=== PATIENT | male | born 1965 | race Caucasian/White ===

== ENCOUNTER 2019-11-08 10:51 | Inpatient (IN) | payer BC ==
[~2019-11-08] VITALS: Ht 172.7 cm; Wt 103.0 kg
[2019-11-08] MEDS ORDERED: SODIUM CHLORIDE 0.9% 1,000 ML IVB ONE (11:07)
[2019-11-08 11:43] LABS: Basophils # (auto) 0 10 ^3/uL (0-0.2); Basophils % (auto) 0.3 % (0.0-2.0); Eosinophils # (auto) 0 10 ^3/uL (0-0.8); Eosinophils % (auto) 0.1 % (0.0-7.0); Hemoglobin 15.3 g/dL (13.5-17.5); Lymphocytes # (auto) 0.7 10 ^3/uL (0.4-5.4); Lymphocytes % (auto) 8.3 % (10.0-50.0); Mean Corpuscular Hemoglobin 28.6 pg (28.0-32.0); Monocytes # (auto) 0.5 10 ^3/uL (0-1.3); Monocytes % (auto) 5.8 % (0.0-12.0); Neutrophils # (auto) 6.7 10 ^3/uL (1.6-8.6); Neutrophils % (auto) 85.5 % (37.0-80.0); Platelet Count (auto) 233 10^3/uL (140-450); Red Blood Cells 5.36 10^6/uL (4.5-5.90); White Blood Cell 7.8 10^3/uL (4.4-10.8)
[2019-11-08 12:05] LABS: Salicylate < 1.7 mg/dL (2.8-20.0)
[2019-11-08 12:07] LABS: Chloride 104 mmol/L (98-107); Sodium 139 mmol/L (136-145)
[2019-11-08 12:15] LABS: Acetaminophen < 2.0 ug/mL (10-30); Alanine Aminotransferase 65 U/L (16-61); Albumin 4.1 g/dL (3.4-5.0); Alkaline Phosphatase 87 U/L (45-117); Anion Gap 10 (5-15); Aspartate Aminotransferase 82 U/L (15-37); BUN/Creatinine Ratio 21.5; Bilirubin, Total 1.2 mg/dL (0.2-1.0); Blood Alcohol < 3.0 mg/dL (0-5); Blood Urea Nitrogen 20 mg/dL (7-18); Carbon Dioxide 25 mmol/L (21-32); GFR African American 108 mL/min; GFR Non-African American 90 mL/min; Glucose 133 mg/dL (74-106); Total Protein 7.9 g/dL (6.4-8.2)
[2019-11-08] MEDS ORDERED: PANTOPRAZOLE 40 MG/10 ML VIAL INJ IV ONE (14:00)
[2019-11-08] MEDS ORDERED: PIPERACILLIN-TAZOB 3.375GM 100 ML IV ONE (14:00)
[2019-11-08] MEDS ORDERED: NITROGLYCERIN 0.4 MG SL TAB SL PRN ×3 (15:00→16:15)
[2019-11-08] MEDS ORDERED: MORPHINE SULF INJ 2 MG/ML SYRINGE 1ML IV PRN ×2 (15:00→16:15)
[2019-11-08] MEDS ORDERED: ASCORBIC ACID 500 MG TAB PO ONE (15:15)
[2019-11-08 15:20] LABS: INR 0.98 (0.9-1.15); Partial Thromboplastin Time 25.8 sec (23.64-32.05)
[2019-11-08] MEDS ORDERED: IPRATROPIUM BROM 0.5 MG/2.5ML INH SOL NEB PRN (16:15)
[2019-11-08] MEDS ORDERED: ONDANSETRON HCL 4 MG/2 ML VIAL IV PRN (16:15)
[2019-11-08] MEDS ORDERED: ALUM & MAG HYDROX-SIMETH LIQ(MAALOX) 30 ML PO PRN (16:15)
[2019-11-08] MEDS ORDERED: DEXTROSE (50%) 50ML SYRG IV PRN ×2 (16:15→22:30)
[2019-11-08] MEDS ORDERED: DOCUSATE SOD 100 MG CAP PO PRN (16:15)
[2019-11-08] MEDS: ZINC SULFATE 220mg CAP or TAB PO SCH (17:00)
[2019-11-08] MEDS: InsuLIN REG 1unit/0.01ml Soln (100units/ml) SC SCH ×2 (17:00→22:00)
--- NOTE | 2019-11-08 17:22 | NUR ---
Telemetry admit from ER IBIS TEJADA admitted to Telemetry unit after SBAR received. Patient oriented to ROGELIO TAPIA RN primary RN, unit, room, bed, and unit policies regarding patient care and visiting hours. Patient now on continuous telemetry monitoring, tele box # 2 and telemetry reading on arrival to unit is SR. Patient placed on bedside oxygen at 6L via NC, weighed by bedscale and encouraged to call if they need something. All questions and concerns addressed, patient verbalized understanding.
[2019-11-08 18:00] VITALS: BP 144/102
[2019-11-08] MEDS ORDERED: ALBUTEROL SULF 2.5 MG/0.5ML(0.5%) NEB SOLN NEB SCH (18:00)
--- NOTE | 2019-11-08 18:00 | NUR ---
SPOKE TO THE PATIENT THE PATIENT IS LETHARGIC AND CONTINUES TO FALL ASLEEP DURING THE CONVERSATION. THE PATIENT STATED THAT THE RN CAN CALL HIS , ALEXANDREA, AND ASK THE ADMISSION QUESTIONS AND HISTORY. THE PATIENT STATED "I DON'T REMEMBER WHAT I TOOK BUT IT COULD HAVE BEEN HEROIN OR COCAINE". THE RN ASKED THE PATIENT IF SHE CAN DISCUSS THE HEROIN OR COCAINE USE WITH THE PATIENTS AND THE PATIENT STATED "PLEASE ASK HER ABOUT THE HEROIN BECAUSE SHE KNOWS EVERY THING BUT I DIDN'T GET TO TELL HER THAT IT MAY HAVE BEEN HEROIN".
[2019-11-08] MEDS: SODIUM CHLORIDE 0.9% 1,000 ML IV SCH (18:03)
--- NOTE | 2019-11-08 18:30 | NUR ---
SPOKE TO THE PATIENTS , ALEXANDREA TEJADA AND THE PATIENT'S SON. CALLED THE PATIENTS AND WAS ABLE TO SPEAK TO THE PATIENTS , ALEXANDREA, AND HIS SON. PER THE , SHE WAS UNAWARE OF WHAT SUBSTANCES THE PATIENT HAD TAKEN BUT THERE IS REASON TO BELIEVE THAT IT COULD HAVE BEEN LORAZEPAM, MORPHINE OR NORCO, DUE TO THE MEDICATIONS FOUND IN THE HOME AT THE TIME. THERE WAS ALSO USED NEEDLES WITH BLOOD ON THEM IN THE HOME . THE STATED THAT SHE HAD LEFT WITH HER TWO YOUNG CHILDREN AND THE PATIENT'S OLDER SON WAS WITH THE PATIENT AT THEIR HOME. THE SON WENT WITH THE PATIENT TO THE PATIENT'S BROTHERS HOME WHERE THE PATIENT AND THE PATIENT'S BROTHER HAD "SMOKED SOMETHING" THAT THE SUBSTANCE WAS UNKNOWN TO THE SON. THE SON STATED, "MY DAD WAS STUMBLING AND COULDN'T WALK NORMAL. HE WAS PARANOID BECAUSE HE HEARD NOISES OUTSIDE. THIS IS NOT NORMAL FOR MY DAD". THE PATIENTS ALSO STATED THAT HE COULD HAVE USED HEROIN, BUT SHE IS UNSURE.
[2019-11-08 18:46] LABS: Urine Bacteria NONE SEEN /hpf (None Seen); Urine Blood 2+ /uL (Negative); Urine Mucus FEW (None Seen); Urine Specific Gravity 1.025 (1.001-1.035); Urine Sperm PRESENT /hpf (None Seen); Urine WBC 1 /hpf (0 - 3)
[2019-11-08 18:49] LABS: Amphetamine Screen, Urine POSITIVE (NEGATIVE); Barbiturate Scree,Urine NEGATIVE (NEGATIVE); Benzodiazephine Screen, Urine NEGATIVE (NEGATIVE); Cannabinoid Screen, Urine NEGATIVE (NEGATIVE); Cocaine Screen, Urine NEGATIVE (NEGATIVE); Opiate Scree,Urine POSITIVE (NEGATIVE); Phencyclidine Screen, Urine NEGATIVE (NEGATIVE)
[2019-11-08] MEDS: ACCU-CHEK COMFORT CURVE STRIP VI SCH ×2 (19:28→22:00)
--- NOTE | 2019-11-08 19:30 | NUR ---
Opening Shift Note Received report from hanna Bustos RN. Assumed care of patient, resting in bed with eyes closed. Opens eyes and converse for a few seconds, but lethargic and goes back to closing eyes again. Sitter at bedside. No S/S of distress/SOB or pain. Instructed on POC and to call for assist PRN, will continue to monitor for changes Q1hr and PRN. Bed placed in lowest position and call light within reach.
[2019-11-08 20:00] VITALS: BP 142/99
[2019-11-08] MEDS ORDERED: SERT-274 PO (20:06)
[2019-11-08] MEDS ORDERED: OXY5T PO (20:06)
[2019-11-08] MEDS ORDERED: ALBUTEROL SULF HFA 90MCG INH 200DOSE IN SCH (22:00)
[2019-11-08] MEDS ORDERED: ATORVASTATIN 20 MG TAB PO SCH (22:00)
[2019-11-08] MEDS ORDERED: LORazepam 2MG/ML-1ML VIAL IV PRN (22:30)
--- NOTE | 2019-11-08 23:49 | NUR ---
BINA FROM POISON CONTROL CALLED AND REQUESTING A REPEAT AST AND ALT LABS IN THE MORNING. CHARGE NURSE AWARE. WILL PLACED ORDER FOR MORNING LABS.
[2019-11-09] VITALS: BP 163/100
--- NOTE | 2019-11-09 00:20 | NUR ---
PATIENT'S BLOOD PRESSURE IS 163/100. GIVEN HYDRALAZINE ORDERED. WILL MONITOR
[2019-11-09] MEDS: hydrALAZINE HCL 20 MG/ML VL IV SCH ×5 (00:25→23:27)
--- NOTE | 2019-11-09 01:50 | NUR ---
BLOOD PRESSURE AFTER HYDRALAZINE IS 138/82. PATIENT IS RESTING IN BED WITH EYES CLOSED, NO DISTRESS NOTED.
[2019-11-09 02:20] LABS: Urine Bacteria NONE SEEN /hpf (None Seen); Urine Blood 3+ /uL (Negative); Urine Mucus FEW (None Seen); Urine Specific Gravity 1.022 (1.001-1.035); Urine Sperm PRESENT /hpf (None Seen); Urine WBC 6 /hpf (0 - 3)
[2019-11-09 02:25] LABS: Alcohol, Urine < 3.0 mg/dL (0-5); Amphetamine Screen, Urine POSITIVE (NEGATIVE); Barbiturate Scree,Urine NEGATIVE (NEGATIVE); Benzodiazephine Screen, Urine NEGATIVE (NEGATIVE); Cannabinoid Screen, Urine NEGATIVE (NEGATIVE); Cocaine Screen, Urine NEGATIVE (NEGATIVE); Phencyclidine Screen, Urine NEGATIVE (NEGATIVE)
[2019-11-09 02:33] LABS: Opiate Scree,Urine POSITIVE (NEGATIVE)
[2019-11-09 03:06] VITALS: BP 142/99
[2019-11-09 04:00] VITALS: BP 152/86
[2019-11-09] MEDS: SODIUM CHLORIDE 0.9% 1,000 ML IV SCH (05:21)
[2019-11-09] MEDS: HYDROcodone-ACET 5/325MG TAB PO PRN ×2 (05:21→09:56)
[2019-11-09] MEDS: ACCU-CHEK COMFORT CURVE STRIP VI SCH ×2 (06:27→11:52)
[2019-11-09] MEDS: InsuLIN REG 1unit/0.01ml Soln (100units/ml) SC SCH ×2 (06:27→11:30)
--- NOTE | 2019-11-09 06:45 | NUR ---
Patient woke up with c/o pain to joints of 6/. Patient just received norco as ordered at 0521. Will endorse to day nurse.
[2019-11-09] MEDS ORDERED: ACCU-CHEK COMFORT CURVE STRIP VI SCH (07:00)
--- NOTE | 2019-11-09 08:00 | NUR ---
OPENING SHIFT NOTE ASSUMED CARE OF PATIENT AWAKE AND ALERT X4. NO S/S OF DISTRESS NOTED. PATIENT HAS A COMPLAINT OF 6/10 PAIN TO ALL JOINTS BELOW HIS WAIST. WILL MEDICATE PER MD ORDER AND MAR. PATIENT IS ABLE TO HOLD A CONVERSATION AND REMEMBERS EVENTS BEFORE HE WAS FOUND UNCONSCIOUS AT HOME. PATIENT STATES HE HAD NO INTENTION OF HARMING HIMSELF OR TAKING HIS OWN LIFE. OXYGEN SATURATION ISS 94% ON 3L NS AND PATIENT IS AFEBRILE. PATIENT UPDATED ON POC FOR THE DAY AND ALL QUESTIONS ANSWERED. BED IS IN LOWEST, LOCKED POSITION WITH SIDE RAILS UP X2 AND CALL LIGHT WITHIN REACH. SITTER IS AT BEDSIDE FOR SAFETY.
--- NOTE | 2019-11-09 08:30 | NUR ---
POISON CONTROL RECEIVED A CALL FROM [facility] AT POISON CONTROL FOLLOWING UP ON REPEAT LABS THAT WERE TO HAVE BEEN DRAWN AT 0400. NOC NURSE STATED SHE DID NOT HAVE TIME TO DO THEM AND REQUESTED LAB TO COME DRAW. INFORMED [facility] THAT ONCE REPEAT LFTS ARE COMPLETED THIS RN WILL CALL HIM BACK. PHONE:
[2019-11-09] MEDS: ASPirin 81 mg TAB PO SCH (09:55)
[2019-11-09] MEDS: ENOXAPARIN SOD 40 MG/0.4 ML SYRINGE SC SCH (09:55)
[2019-11-09] MEDS: SERTRALINE HCL 50 MG TAB PO SCH (09:55)
[2019-11-09] MEDS: ZINC SULFATE 220mg CAP or TAB PO SCH (09:55)
[2019-11-09 09:59] LABS: Basophils # (auto) 0 10 ^3/uL (0-0.2); Basophils % (auto) 0.4 % (0.0-2.0); Eosinophils # (auto) 0.1 10 ^3/uL (0-0.8); Eosinophils % (auto) 1.5 % (0.0-7.0); Hematocrit 41.1 % (41.0-53.0); Lymphocytes # (auto) 0.8 10 ^3/uL (0.4-5.4); Lymphocytes % (auto) 11.2 % (10.0-50.0); Mean Corpuscular Hemoglobin 28.5 pg (28.0-32.0); Mean Corpuscular Hgb Conc. 34.1 g/dL (32.0-36.0); Mean Corpuscular Volume 83.6 fL (80.0-100.0); Monocytes # (auto) 0.6 10 ^3/uL (0-1.3); Monocytes % (auto) 7.8 % (0.0-12.0); Neutrophils # (auto) 5.7 10 ^3/uL (1.6-8.6); Neutrophils % (auto) 79.1 % (37.0-80.0); Platelet Count (auto) 208 10^3/uL (140-450); Red Blood Cells 4.92 10^6/uL (4.5-5.90); Red Cell Distribution Width 14.4 % (11.8-14.3); White Blood Cell 7.3 10^3/uL (4.4-10.8)
[2019-11-09] MEDS ORDERED: levoFLOXacin 750MG 150 ML IV SCH (10:00)
[2019-11-09 10:21] LABS: BUN/Creatinine Ratio 21.2; Calcium 8.2 mg/dL (8.5-10.1); Magnesium 2.4 mg/dL (1.6-2.6); Potassium 3.3 mmol/L (3.5-5.1)
[2019-11-09] MEDS ORDERED: PIPERACILLIN-TAZOB 3.375GM 100 ML IV ONE (10:45)
[2019-11-09 10:47] LABS: Bilirubin, Total 1.3 mg/dL (0.2-1.0); Phosphorus 3.1 mg/dL (2.5-4.90); Total Protein 5.9 g/dL (6.4-8.2)
[2019-11-09] MEDS ORDERED: SODIUM CHLORIDE 0.9% 1,000 ML IV SCH (11:15)
--- NOTE | 2019-11-09 11:16 | NUR ---
POISON CONTROL RECOMMENDATION SPOKE WITH CHI REGARDING LFTS CONTINUING TO RISE. HIS RECOMMENDATION IS ADMINISTRATIONS OF MUCOMYST. MUCOMYST LOADING DOSE: 140MG/KG PO ONCE MAINTENANCE DOSE: 70MG/KG PO Q4H FOR 24H IF LFTS CONTINUE TO RISE AFTER 24 HOURS THEN CONTINUE ADMINISTRATION OF MAINTENANCE MUCOMYST DOSE.
[2019-11-09] MEDS ORDERED: ACETYLCYSTEINE ORAL for CIN 20%(200MG/ML) 4ML PO ONE (11:45)
[2019-11-09] MEDS: SODIUM BICARBONATE IV SCH ×2 (12:03→22:37)
[2019-11-09] MEDS: SOD CHL IV SCH ×2 (12:03→22:37)
[2019-11-09] MEDS ORDERED: ACETYLCYSTEINE 20%(200MG/ML) SOLN 30ML PO ONE ×2 (12:15→12:30)
--- NOTE | 2019-11-09 12:30 | NUR ---
assessment re: ss consult overdose Patient is a 54 year old male who is alert and oriented. Patients cognitive abilities are intact. Prior to admission patient lived home with family and functioned independently. Patient informed me he is able to care for his own ADLs. Per patient he was not trying to kill himself. Patient informed me he was trying to get high. Patient has no suicidal ideations. Patient was trying to numb his feelings, his mother that day. I provided emotional support and active listening. I informed patient he would have a tele psych evaluation prior to discharge. I informed patient he has a right to speak to a manager social services regarding all care. I informed patient he has a right to participate in any and all discharge planning. Patient does not have a POA and advanced directive. I have offered patient information on POA and advanced directives. I informed the patient the advantages and benefits of having an Advanced Directive. Patient verbalized understanding and agreed to discharge plan. Addendum: 11/09/19 at 1547 by Alma GUILLORY Amended: Links added.
[2019-11-09] MEDS: oxyCODONE HCL 5MG TAB PO PRN ×3 (13:01→23:32)
--- NOTE | 2019-11-09 13:08 | NUR ---
CARE ENDORSED REPORT GIVEN TO ANNIE HANNON
--- NOTE | 2019-11-09 15:02 | NUR ---
Dr Hansen at bedside.
--- NOTE | 2019-11-09 15:02 | NUR ---
OD Patient states that his overdose was not a suicide attempt, but just made a mistake while taking drugs.
[2019-11-09 17:00] VITALS: BP 116/72
[2019-11-09] MEDS: ACETYLCYSTEINE 20%(200MG/ML) SOLN 30ML PO SCH ×3 (17:44→23:27)
--- NOTE | 2019-11-09 19:12 | NUR ---
Closing Shift Note Gave report to PARVEZ Solorio Patient shows no signs of distress.
[2019-11-09 22:00] VITALS: BP 117/71
[2019-11-09] MEDS ORDERED: InsuLIN REG 1unit/0.01ml Soln (100units/ml) SC SCH (22:00)
[2019-11-09] MEDS: PIPERACILLIN-TAZO 4.5GM 100 ML IV SCH (22:37)
[2019-11-09] MEDS: TEMAZEPAM 15 MG CAP PO PRN (23:33)
--- NOTE | 2019-11-09 23:40 | NUR ---
PT OOB TO BR AND DISLODGED THE IV AT THIS TIME.
[2019-11-10] MEDS: ACETYLCYSTEINE 20%(200MG/ML) SOLN 30ML PO SCH ×3 (04:30→12:30)
[2019-11-10] MEDS: SOD CHL IV SCH ×3 (04:33→22:45)
[2019-11-10] MEDS: SODIUM BICARBONATE IV SCH ×3 (04:33→22:45)
[2019-11-10 05:00] VITALS: BP 115/68
[2019-11-10] MEDS: PIPERACILLIN-TAZO 4.5GM 100 ML IV SCH ×3 (06:00→22:46)
[2019-11-10] MEDS: hydrALAZINE HCL 20 MG/ML VL IV SCH ×4 (06:00→22:48)
--- NOTE | 2019-11-10 06:55 | NUR ---
AFTER SEVERAL ATTEMPTS THROUGH THE NIGHT BY DIFFERENT NURSES TO START AN IV, ROSEMARY ROACH RN WAS ABLE TO INSERT 24G IN RIGHT UPPER ARM.
[2019-11-10 06:58] LABS: Basophils # (auto) 0 10 ^3/uL (0-0.2); Basophils % (auto) 0.4 % (0.0-2.0); Eosinophils # (auto) 0.2 10 ^3/uL (0-0.8); Eosinophils % (auto) 2.8 % (0.0-7.0); Hematocrit 40.8 % (41.0-53.0); Hemoglobin 14.1 g/dL (13.5-17.5); Lymphocytes # (auto) 0.7 10 ^3/uL (0.4-5.4); Lymphocytes % (auto) 12.1 % (10.0-50.0); Mean Corpuscular Hemoglobin 28.9 pg (28.0-32.0); Mean Corpuscular Hgb Conc. 34.6 g/dL (32.0-36.0); Mean Corpuscular Volume 83.6 fL (80.0-100.0); Monocytes # (auto) 0.5 10 ^3/uL (0-1.3); Monocytes % (auto) 8.7 % (0.0-12.0); Neutrophils # (auto) 4.7 10 ^3/uL (1.6-8.6); Nucleated Red Blood Cells % 0.1 %; Platelet Count (auto) 198 10^3/uL (140-450); Red Blood Cells 4.88 10^6/uL (4.5-5.90); Red Cell Distribution Width 14.5 % (11.8-14.3); White Blood Cell 6.1 10^3/uL (4.4-10.8)
--- NOTE | 2019-11-10 07:00 | NUR ---
Opening Shift Note received report on the patient. Awake lying in bed. Patient shows no signs of distress at this time. Discussed the plan of care with the patient. Bed in lowest position, side rails up x2, and the call light is within reach. Will continue to monitor.
[2019-11-10 07:16] LABS: Albumin 2.7 g/dL (3.4-5.0); Calcium 8.2 mg/dL (8.5-10.1); Magnesium 2.6 mg/dL (1.6-2.6); Potassium 3.1 mmol/L (3.5-5.1)
[2019-11-10 07:43] LABS: Bilirubin, Total 1.5 mg/dL (0.2-1.0); Total Protein 6.2 g/dL (6.4-8.2)
[2019-11-10 09:00] VITALS: BP 110/69
--- NOTE | 2019-11-10 09:04 | NUR ---
Poison Control Daisha from poison control called and advised that the patient continue on the Mucomyst because the ALT was higher.
[2019-11-10] MEDS ORDERED: SODIUM BICARBONATE 8.4 % INJ 50ML VIAL IV SCH (10:00)
[2019-11-10] MEDS: AZITHROMYCIN 500MG/ 250ML 250 ML IV SCH (11:29)
[2019-11-10] MEDS: ASPirin 81 mg TAB PO SCH (11:30)
[2019-11-10] MEDS: ZINC SULFATE 220mg CAP or TAB PO SCH (11:30)
[2019-11-10] MEDS: ENOXAPARIN SOD 40 MG/0.4 ML SYRINGE SC SCH (11:30)
[2019-11-10] MEDS: SERTRALINE HCL 50 MG TAB PO SCH (11:30)
[2019-11-10] MEDS: oxyCODONE HCL 5MG TAB PO PRN ×3 (11:56→22:51)
[2019-11-10 13:00] VITALS: BP 113/70
[2019-11-10 17:07] VITALS: BP 118/83
[2019-11-10] MEDS ORDERED: POTASSIUM CHL 20 Meq TABLET PO ONE (17:45)
[2019-11-10 22:00] VITALS: BP 114/78
[2019-11-10] MEDS: TEMAZEPAM 15 MG CAP PO PRN (22:51)
[2019-11-11] MEDS: oxyCODONE HCL 5MG TAB PO PRN ×4 (04:30→20:48)
[2019-11-11 05:00] VITALS: BP 132/81
[2019-11-11] MEDS: SODIUM BICARBONATE IV SCH ×3 (05:45→22:25)
[2019-11-11] MEDS: SOD CHL IV SCH ×3 (05:45→22:25)
[2019-11-11] MEDS: hydrALAZINE HCL 20 MG/ML VL IV SCH ×4 (05:59→18:00)
[2019-11-11] MEDS: PIPERACILLIN-TAZO 4.5GM 100 ML IV SCH ×3 (07:00→22:25)
--- NOTE | 2019-11-11 07:00 | NUR ---
Opening Shift Note Received report on the patient. Awake lying in bed. Patient does not show any signs of distress at this time. Discussed the plan of care with the patient. Bed in lowest position, side rails up x2, and the call light is within reach. Will continue to monitor.
[2019-11-11 07:19] LABS: BUN/Creatinine Ratio 16.9; Calcium 8.3 mg/dL (8.5-10.1); Potassium 3.2 mmol/L (3.5-5.1)
[2019-11-11 09:00] VITALS: BP 130/77
[2019-11-11] MEDS ORDERED: ACETYLCYSTEINE ORAL for CIN 20%(200MG/ML) 4ML PO SCH (10:00)
[2019-11-11] MEDS ORDERED: POTASSIUM CHL 10 Meq TABLET PO ONE (10:15)
--- NOTE | 2019-11-11 10:25 | NUR ---
Poison control called again this morning and advised the get new AST, ALT, and INR drawn. Poison control also advised to continue taking the Mucomyst.
[2019-11-11] MEDS: SERTRALINE HCL 50 MG TAB PO SCH (10:52)
[2019-11-11] MEDS: ASPirin 81 mg TAB PO SCH (10:52)
[2019-11-11] MEDS: ZINC SULFATE 220mg CAP or TAB PO SCH (10:52)
[2019-11-11] MEDS: AZITHROMYCIN 500MG/ 250ML 250 ML IV SCH (10:52)
[2019-11-11] MEDS: ENOXAPARIN SOD 40 MG/0.4 ML SYRINGE SC SCH (10:53)
[2019-11-11 11:04] LABS: Alanine Aminotransferase 106 U/L (16-61); Aspartate Aminotransferase 194 U/L (15-37)
[2019-11-11 11:37] LABS: INR 0.99 (0.9-1.15); Partial Thromboplastin Time 25.8 sec (23.64-32.05)
[2019-11-11] MEDS: ACETYLCYSTEINE 20%(200MG/ML) SOLN 30ML PO SCH ×3 (12:30→20:37)
[2019-11-11 13:30] VITALS: BP 134/84
--- NOTE | 2019-11-11 21:45 | NUR ---
PAIN PATIENT REPORTS PAIN OF 5/10. PROVIDED HEAT PADS
--- NOTE | 2019-11-11 22:09 | NUR ---
POISON CONTROL CALL SHEET METAL ROOFER [facility] [phone] STATED THAT IT IS NECESSARY TO OBTAIN CURRENT AST AND ALT FOR MUCOMYST DOSING. PAGED HOSPITALIST FOR DRAW ORDER.
[2019-11-11] MEDS: TEMAZEPAM 15 MG CAP PO PRN (22:34)
[2019-11-11 22:58] LABS: Albumin 2.6 g/dL (3.4-5.0); BUN/Creatinine Ratio 16.7; Calcium 8.5 mg/dL (8.5-10.1); Potassium 3.8 mmol/L (3.5-5.1)
[2019-11-11 23:00] LABS: Bilirubin, Total 0.9 mg/dL (0.2-1.0)
--- NOTE | 2019-11-11 23:21 | NUR ---
CALLED POISON CONTROL SPOKE WITH DIRECTOR [employer] GARO [phone] TO UPDATE HIM WITH AST AND ALT LEVELS DIRECTOR [employer] RECOMMENDED TO CONTINUE WITH MUCOMYST UNTIL LABS IMPROVE.
[2019-11-12] MEDS: hydrALAZINE HCL 20 MG/ML VL IV SCH ×3 (00:48→12:37)
[2019-11-12] MEDS: ACETYLCYSTEINE 20%(200MG/ML) SOLN 30ML PO SCH ×3 (00:48→09:12)
[2019-11-12] MEDS: oxyCODONE HCL 5MG TAB PO PRN ×4 (01:23→15:33)
--- NOTE | 2019-11-12 01:24 | NUR ---
PAIN PROVIDED PAIN MEDICATION AND HEAT PAD.
--- NOTE | 2019-11-12 05:00 | NUR ---
[facility] [employer] RESOURCE SPECIALIST AWARE LAB RESULTS PENDING FOR MEDICATION ADMINISTRATION.
[2019-11-12 06:01] LABS: Potassium 3.4 mmol/L (3.5-5.1)
[2019-11-12 06:09] LABS: Albumin 2.7 g/dL (3.4-5.0); BUN/Creatinine Ratio 15.9; Bilirubin, Total 1.2 mg/dL (0.2-1.0); Calcium 8.6 mg/dL (8.5-10.1); Total Protein 6.2 g/dL (6.4-8.2)
[2019-11-12] MEDS: SODIUM BICARBONATE IV SCH (06:58)
[2019-11-12] MEDS: PIPERACILLIN-TAZO 4.5GM 100 ML IV SCH ×2 (06:58→14:21)
[2019-11-12] MEDS: SOD CHL IV SCH (06:58)
--- NOTE | 2019-11-12 07:00 | NUR ---
Opening Shift Note Received report on the patient. Awake lying in bed. Patient shows no signs of distress at this time. Discussed the plan of care with the patient. Bed in lowest position, side rails up x2, and the call light is within reach. Will continue to monitor.
--- NOTE | 2019-11-12 07:20 | NUR ---
CLOSING NOTE- NOC SHIFT ENDORSED PATIENT CARE TO DAY SHIFT RN PATIENT IS COMFORTABLE IN BED. NO S/SX OF DISTRESS OR SOB.
[2019-11-12] MEDS: AZITHROMYCIN 500MG/ 250ML 250 ML IV SCH (10:10)
[2019-11-12] MEDS: ASPirin 81 mg TAB PO SCH (10:10)
[2019-11-12] MEDS: SERTRALINE HCL 50 MG TAB PO SCH (10:11)
[2019-11-12] MEDS: ENOXAPARIN SOD 40 MG/0.4 ML SYRINGE SC SCH (10:11)
[2019-11-12] MEDS: ZINC SULFATE 220mg CAP or TAB PO SCH (10:11)
--- NOTE | 2019-11-12 11:49 | NUR ---
Dr. Hansen at bedside. New orders received.
[2019-11-12 14:16] LABS: Hepatitis A Ab IgM Negative; Hepatitis B Core IgM Negative; Hepatitis B Surface Antigen Negative (Negative); Hepatitis C Antibody Negative (Negative)
--- NOTE | 2019-11-12 15:20 | NUR ---
AMA Patient AMA because he did not want to wait for discharge paperwork.
--- NOTE | 2019-11-12 15:20 | NUR ---
PT eval orders received. Spoke with pt and pt's RN who confirmed that patient has been walking around the unit independently and without difficulty. Pt told me he lives with his family in a single story home where he has 24/7 assistance available if needed. He has had no falls and walks independently without an assistive device. He does not require skilled PT at this time and is safe to discharge home independently. If pt has a change in status he can be re-evaluated.
== END 2019-11-12 17:00 | disposition left against medical advice (07) | DRG 917 ==
LOC: EDBD 10:51 → ER 10:51 → TELE 10:52 → TELE-EAST 17:29
PROVIDERS: ADMIT Hospitalist; ATTEND Internal Medicine
DX: T40.601A Poisoning by unspecified narcotics, accidental (unintentional), initial encounter (principal); G93.41 Metabolic encephalopathy; J18.9 Pneumonia, unspecified organism; N17.0 Acute kidney failure with tubular necrosis; M62.82 Rhabdomyolysis; T43.621A Poisoning by amphetamines, accidental (unintentional), initial encounter; Y92.89 Other specified places as the place of occurrence of the external cause; E66.9 Obesity, unspecified; F32.9 Major depressive disorder, single episode, unspecified; I10 Essential (primary) hypertension; K20.9 Esophagitis, unspecified; K43.2 Incisional hernia without obstruction or gangrene; K76.0 Fatty (change of) liver, not elsewhere classified; K80.20 Calculus of gallbladder without cholecystitis without obstruction; E87.6 Hypokalemia; Z71.51 Drug abuse counseling and surveillance of drug abuser; Z53.29 Procedure and treatment not carried out because of patient's decision for other reasons
CPT/HCPCS: 36415; 36600; 70450; 71045; 74176; 80048; 80053; 80061; 80074; 80307; 80320; 80329; 81001; 82550; 82728; 82805; 82962; 83036; 83605; 83735; 84100; 84450; 84460; 85025; 85610; 85730; 86703; 87040; 87070; 87804; 87880; 93005; C9113; G0378; J1956; J2405; J2543

== ENCOUNTER → 2020-10-28 | Outpatient (CLI) | payer BC ==
[~2020-10-28] MED LIST: OXY5T PO; SERT-274 PO
== END | disposition home or self-care (01) ==
LOC: XYW 10:10
PROVIDERS: ATTEND Orthopaedic Surgery Sports Medicine
DX: S83.242A Other tear of medial meniscus, current injury, left knee, initial encounter (principal); S83.512A Sprain of anterior cruciate ligament of left knee, initial encounter; M25.462 Effusion, left knee; M71.22 Synovial cyst of popliteal space [Baker], left knee; X58.XXXA Exposure to other specified factors, initial encounter; Y93.89 Activity, other specified; Y92.89 Other specified places as the place of occurrence of the external cause; Y99.8 Other external cause status; M65.9 Synovitis and tenosynovitis, unspecified
CPT/HCPCS: 73721